=== PATIENT | female | born 1945 | race Caucasian/White ===

== ENCOUNTER 2023-06-03 10:44 | Outpatient (AMB) | payer MEDICARE, SELFPAY ==
--- NOTE | 2023-06-03 10:47 | A.OFFVIS_ITS ---
Intake Vital Signs 06/03/23 10:53 Height 5 ft 0.5 in Weight 210 lb BMI 40.3 BP 116/67 Blood Pressure Location Lt brachial Position Sitting Respiration 18 Pulse 74 Pulse Source Pulse Oximeter Pulse Oximetry (%) 94 Oxygen Delivery Method Room Air Intake Visit Reasons: Back & Neck Pain/confirmed Allergies [id number] Reductase Inhibitor Allergy (Unknown, Verified 06/03/23 10:38) Unknown codeine phosphate Allergy (Unknown, Uncoded 06/03/23 10:38) Gastrointestinal Upset dyazide Allergy (Unknown, Uncoded 06/03/23 10:38) Rash HPI Back & Neck Pain/confirmed HPI Details Patient is a pleasant 78 years old female presents today for initial evaluation for chronic neck and low back pain. Denies any recent trauma, injury or falls. Patient reports major thoracic surgery, plication with chest tubes in January 2023 for hemidiaphragm paralysis. She is on O2 at 2L via nasal cannula with activity. Patient reports severe back spasms after thoracic surgery. Her neck and back pain are axial without any radicular symptoms. Back pain extends into her lateral hip and sacral regions bilaterally. Neck pain is worse with extension and right sided rotation and bending. Patient reports she has been ma naging her symptoms with NSAIDs, stretching exercises, Biofreeze, gabapentin and resting in her recliner but continues to have significant pain, especially in the morning or with prolonged standing for example when she prepares her meals. Pain affects her daily activities and functioning, mobility, mood, social interactions and quality of life. She rates her pain at 2/10 at this time, and 7-10/10 upon awakening in the morning or daily activities. Patient reports being seen by Dr. Carmona at [facility] many years ago and was offered injections for right sided sciatica which she declined and symptoms self- resolved. She reports meloxicam was very beneficial in the past. Patient has recently stopped taking Ibuprofen due to positive cologuard test and has upcoming GI evaluation. Patient continues Pulmonary rehabilitation. Patient reports she consumes whisky 1-2 glasses every day for pain and stress. She avoids driving while consuming alcohol and avoids combining alcohol with her medications, especially gabapentin and lorazepam. Patient is aware of addictive properties for alcohol consumption and lorazepam. Location mid and lower back and neck pain Duration Chronic pain for many years, intermittent, worse in the morning/during day Characteristics of symptom or complaint Aching, stabbing, sharp, tiring, numbness (occasionally left arm) Aggravating or associated factors Standing, movements, bending, stress, cold weather Relieving factors Ibuprofen, Biofreeze, Recliner, gabapentin, heat therapy Treatment Weekly massages, home PT, chiropractic, acupunture, [facility] Medical History (Updated 06/03/23 @ 13:30 by ASHLEY Mccloud) Anxiety Neck pain Back pain Benzodiazepine dependence Morbid obesity HTN (hypertension) Diastolic CHF Hemidiaphragm paralysis Hypoxic respiratory failure Major depression Asthma COPD (chronic obstructive pulmonary disease) Surgical History (Updated 06/03/23 @ 12:55 by ASHLEY Mccloud) History of thoracic surgery Social History (Updated 06/03/23 @ 12:59 by ASHLEY Mccloud) Household Members: None Housing: House Alcohol intake: current Alcohol intake frequency: 0-2 drinks per day Alcohol type: hard liquor Comment: Whisky Patient Tobacco Use Status: Former Tobacco user Review of Systems Const All systems reviewed & are unremarkable except as noted in HPI and below Physical Exam General: Appears afebrile. Alert and oriented. Mood and affect appropriate. Follows and participates in conversation appropriately. Respiratory effort is unlabored. No cough. O2@2L with activity. Able to transition from sit to stand unassisted. Antalgic gait. Ambulates with bilaterally normal heel strike and toe off. Neck Neck: Yes no lymphadenopathy, Yes supple, No anterior neck swelling and Yes no JVD Back/Spine/Pelvis Other: Limited thoracolumbar ROM due to pain. Antalgic gait, with slight limping. Demonstrates 5/5 strength of quadriceps bilaterally as well as flexion/dorsiflexion of bilateral feet against resistance. 2+ pedal pulses bilaterally. Seated straight leg rise with dorsiflexion negative bilaterally. Diminished patellar and achilles reflexes bilaterally. Facet loading test positive bilaterally, left>right. Maida sign, Sharath?s, Pelvic compression and Stinchfield tests are positive bilaterally. No groin pain with I/E hip rotations. Mild TTP bilateral GTB areas. Valsalva maneuver negative. Cervical Spine: cervical muscular tenderness, pain with cervical ROM, No cervical spasm and No Cervical spine tenderness Thoracic/Lumbar Spine: thoracic and lumbar spine normal to inspection, Thoracic/lumbar spine scar(s) (s/p plication 02/18/23, well healed incisions), Lasegue's sign negative, straight leg raise negative bilaterally, pain with thoraco-lumbar ROM, paraspinal muscle tenderness, thoraco-lumbar ROM limited, Thoracic/lumbar scoliosis, thoracic spinal tenderness at T11 and at T12 and lumbar spinal tenderness (L4-S1) Pelvis: buttock tenderness Sacroiliac joints: bilaterally tender to palpation Results Reviewed Results Reviewed: MR LUMBAR SPINE WITHOUT CONTRAST 01/07/2017 at [facility] HISTORY: Outside scan from [facility] dated 10/17/2014. COMPARISON: None. TECHNIQUE: Sagittal and axial T1-weighted and fast spin echo T2-weighted images were obtained. FINDINGS: This report was delayed pending arrival of outside images for comparison. L1-2: The disc is of normal height and signal intensity without significant disc bulge or herniation. L2-3: The disc is of normal height and signal intensity without significant disc bulge or herniation. L3-4: The disc is of diminished height and signal intensity. There is mild right lateral disc protrusion and degenerative facet arthropathy causing no significant impression upon the dural sac or nerve roots unchanged. L4-5: There is mild retrolisthesis. The disc is of diminished height and signal intensity. There is mild broad-based disc herniation and spur formation and degenerative facet arthropathy causing slight flattening of the dural sac and very mild encroachment upon the left neural foramen unchanged. L5-S1: There is slight retrolisthesis. The disc is of diminished height and signal intensity. There is an annular tear and degenerative facet arthropathy causing very slight encroachment upon the left neural foramen unchanged. There is moderate lumbar scoliosis convex left. There are endplate degenerative changes most pronounced at L4-5 and T12-L1. There is a benign vertebral hemangioma at L4. Conus terminates at L1 and appears normal. There is no paraspinous mass. IMPRESSION: Moderate lumbar scoliosis convex left with minor disc herniations and degenerative changes as described causing no significant impression upon the dural sac or nerve roots unchanged. Assessment & Plan Assessment & Plan (1) Low back pain: Code(s): M54.50 - Low back pain, unspecified (2) Degeneration of thoracolumbar intervertebral disc: Code(s): M51.35 - Other intervertebral disc degeneration, thoracolumbar region (3) Sacroiliac joint pain: Code(s): M53.3 - Sacrococcygeal disorders, not elsewhere classified (4) Lumbosacral spondylosis: Code(s): M47.817 - Spondylosis without myelopathy or radiculopathy, lumbosacral region (5) Lumbar scoliosis: Code(s): M41.9 - Scoliosis, unspecified Plan Lumbar and thoracic spine imaging to assess degree of degenerative changes, any subluxation, listhesis, compression fractures or pars defects. Discussed interventional treatments for neck and back pain, including diagnostic injections for potential Sprint PNS trial or RFA procedures, as well as therapeutic injections. Informational pamphlets provided to patient. Continue daily stretching exercises, Tylenol, heat therapy, adequate hydration, and weight optimization. Reviewed addictive properties and negative effects of alcohol use, including impaired balance, and risks associated with taking [employer] depressants with alcohol. Encouraged patient to stop alcohol consumption. All questions were answered and the patient is in agreement of plan. Follow-up for xray results and sooner as needed. Orders: Orders XR lumbar spine 4V min Today M51.35 - Other intervertebral disc degeneration, thoracolumbar region, M54.50 - Low back pain, unspecified XR thoracic spine 3V Today M47.817 - Spondylosis without myelopathy or radiculopathy, lumbosacral region, M51.35 - Other intervertebral disc degeneration, thoracolumbar region, M53.3 - Sacrococcygeal disorders, not elsewhere classified, M54.50 - Low back pain, unspecified Coding Level of Care Code New Pt Level 4 (75404) Diagnoses Low back pain M54.50 Degeneration of thoracolumbar intervertebral disc M51.35 Sacroiliac joint pain M53.3 Lumbosacral spondylosis M47.817 Lumbar scoliosis M41.9
[2023-06-03 10:53] VITALS: BP 116/67; PULSE 74; RESP 18; O2SAT 94; BMI 40.3
== END 2023-06-03 11:45 | disposition home or self-care (01) ==
PROVIDERS: PCP Internal Medicine; Visit Provider Nurse Practitioner Family
DX: M54.50 Low back pain, unspecified (principal); M51.35 Other intervertebral disc degeneration, thoracolumbar region; M53.3 Sacrococcygeal disorders, not elsewhere classified; M47.817 Spondylosis without myelopathy or radiculopathy, lumbosacral region; M41.9 Scoliosis, unspecified
CPT/HCPCS: 99204

== ENCOUNTER → 2023-06-03 10:44 | Outpatient (BNVA) | payer MEDICARE, SELFPAY | PROVIDERS: PCP Internal Medicine; Visit Provider Nurse Practitioner Family | DX: M54.50 Low back pain, unspecified (principal); M51.35 Other intervertebral disc degeneration, thoracolumbar region; M53.3 Sacrococcygeal disorders, not elsewhere classified; M47.817 Spondylosis without myelopathy or radiculopathy, lumbosacral region; M41.9 Scoliosis, unspecified | CPT/HCPCS: 99202 ==

== ENCOUNTER 2023-11-16 13:43 | Outpatient (AMB) | payer MEDICARE, SELFPAY ==
[2023-11-16 13:55] VITALS: BP 110/68; PULSE 75; O2SAT 93; BMI 43.3
--- NOTE | 2023-11-16 13:55 | A.OFFVIS_ITS ---
Vital Signs 11/16/23 13:55 Height 5 ft 0.5 in Weight 225 lb 4 oz BMI 43.3 BP 110/68 Blood Pressure Location Lt brachial Position Sitting Pulse 75 Pulse Source Pulse Oximeter Pulse Oximetry (%) 93 Oxygen Delivery Method Room Air Intake Visit Reasons: copd / asthma Allergies [id number] Reductase Inhibitor Allergy (Unknown, Verified 11/16/23 13:58) Unknown codeine phosphate Allergy (Unknown, Uncoded 11/16/23 13:58) Gastrointestinal Upset dyazide Allergy (Unknown, Uncoded 11/16/23 13:58) Rash HPI HPI copd / asthma: Details: Kathe is a pleasant 78 year old female, former smoker, with 30 pack year history, quit 40 years ago with underlying COPD, DAPHNE on CPAP, diastolic dysfunction on lasix 20 mg and HTN. She was referred by PCP for pulmonary evaluation. She reports worsening respiratory symptoms over the last few years. Previously quite active however activity level declined over the last three years with 30-40 lbs weight gain. She notes 3.5 years ago she was admitted for reported respiratory failure with hypoxia. She believes it was due to COPD exacerbation, however notes unavailable. PFT 2020 revealed severe obstructive and restrictive defect, DLCO 51%. She also underwent hiatal hernia repair 2 years ago at [facility] as this what thought to be a contributing factor of dyspnea. Then sent to thoracic at [facility] for plication surgery for paralysis of right hemidiaphragm in January 2023. Unfortunately she reports complications requiring an 11 day stay and was discharged on 9L of continuous supplemental oxygen. Report unavailable. As of March 2023, her oxygen requirements decreased and was instructed to use 2 L with exertion which she receives from [employer]. She is not wearing supplemental oxygen today and reports rarely using. She attended pulmonary rehab x 10 sessions. Despite both surgeries, dyspnea has persisted. She monitors her oxygen saturation at home and reports >92% on room air, however only at rest. She reports dyspnea on exertion with occasional dry cough, sometimes productive upon awakening with clear sputum. Denies wheezing and chest tightness. She denies any occupational exposures. She denies any pertinent family history. She reports DAPHNE, unknown severity, using CPAP consistently and is under the care of [facility] sleep medicine. [employer] is her DME. [facility] Medical History (Updated 11/17/23 @ 20:06 by Jayla Osman NP) Anxiety Neck pain Back pain Benzodiazepine dependence Morbid obesity HTN (hypertension) Diastolic CHF Hemidiaphragm paralysis Hypoxic respiratory failure Major depression Asthma COPD (chronic obstructive pulmonary disease) Surgical History (Updated 06/03/23 @ 12:55 by SAHLEY Mccloud) History of thoracic surgery Social History Household Members: None Housing: House Alcohol intake: current Alcohol intake frequency: 0-2 drinks per day Alcohol type: hard liquor Comment: Whisky Patient Tobacco Use Status: Former Tobacco user Review of Systems Const Denies chills, Denies excessive sweating, Denies fever(s), Denies headache(s) and Denies night sweats Eyes Denies dry eyes, Denies irritation and Denies itchy eyes ENT Reports Normal hearing present, Denies headache(s), Denies nasal congestion, Denies nasal discharge, Denies post nasal drip and Denies sore throat Card Denies chest pain, Denies chest pain at rest, Denies chest pain with activity, Denies claudication, Denies leg edema, Denies orthopnea and Denies paroxysmal nocturnal dyspnea Resp Denies chest congestion, Denies excessive phlegm production, Denies pain on inspiration, Denies pain with cough, Denies stridor and Denies wheezing Musc Denies myalgias Neuro Reports Normal hearing present and Denies headache(s) Endo Denies excessive sweating Baldemar/Lymph Denies lymphadenopathy Aller/Immun Denies itchy eyes, Denies seasonal rhinorrhea and Denies wheezing Physical Exam Vital Signs: Last Vital Signs Pulse 75 11/16/23 13:55 BP 110/68 11/16/23 13:55 Pulse Ox 93 11/16/23 13:55 Oxygen Delivery Method Room Air 11/16/23 13:55 BMI result Body Mass Index 43.3 Const General: cooperative, healthy appearing, comfortable, no acute distress, well developed and alert Nutritional Appearance: obese Orientation/consciousness: patient oriented x3 Limitations: no limitations HEENT Head: Yes normal to inspection, Yes normocephalic and Yes atraumatic Ears: hearing grossly normal bilaterally and external ears normal Eyes General: appearance normal, both eyes and all related structures Eyelids: Yes eyelids normal Sclerae: sclerae normal EOM: EOMs intact bilaterally Neck Neck: Yes normal visual inspection and Yes no lymphadenopathy Lymphatic: no lymphadenopathy noted Chest Chest palpation & inspection: normal inspection of the chest Resp Effort & Inspection: normal respiratory effort, able to speak in complete sentences, no audible wheezes, no cough, no stridor, not tachypneic, no tripod positioning and no use of accessory muscles Auscultation: clear to auscultation bilaterally Cardio Jugular venous distension: no JVD Rate: regular rate Rhythm: regular rhythm Skin Other: warm, dry General skin exam: no rashes or lesions noted Neuro General: patient oriented x3 Cranial nerves: Yes Normal hearing present Cognition (Neuro): normal cognition Gait exam (Neuro): Normal gait present Extrem General: Yes normal to inspection, Yes capillary refill normal, Yes no clubbing, cyanosis or edema and Yes no pedal edema Psych Appearance: grossly normal and well kempt Speech and movement: Normal speech and movement present and Clear speech present Affect: normal affect Attitude: cooperative Thought process: Normal thought process present Thought content: Normal thought content present Insight: Good insight present (Psych) Judgement: Good judgement present (Psych) Office Procedures 6 Minute Walk Time:: 15:00 SPO2 % at rest: 95 Pulse at rest: 71 SPO2 % during excercise: 87 Pulse during excercise: 85 SPO2 % after excercise: 92 Pulse after excercise: 88 Distance in yards walked: 100 Brian Score: 7 Performance Observations:: Patient walked on level ground unassisted at a slow pace. After approx 25 yards O2 saturation dropped to 87% with pulse of 85. O2 applied at 1L via nasal cannula without much help..increased to 2L and rested O2 saturation recovered to 93% with pulse of 88. Continued walk and maintained saturation of 92% and pulse of 88%. Patient was unable to complete the full six minute walk do to significant arthritic pain in her back. Patient would benefit from the use of supplemental O2. 20582 - 6 Minute Walk Assessment & Plan Assessment & Plan (1) COPD (chronic obstructive pulmonary disease): Code(s): J44.9 - Chronic obstructive pulmonary disease, unspecified Category: Medical (2) History of acute respiratory failure: Code(s): Z87.09 - Personal history of other diseases of the respiratory system Category: Medical (3) Personal history of tobacco use: Code(s): Z87.891 - Personal history of nicotine dependence Category: Social Hx Plan Kathe's symptoms are likely multifactorial with contribution from pulmonary, cardiac and deconditioning/obesity etiologies, as well as h/o prior surgeries. W ill attempt to obtain prior records from [facility]. She reports imaging performed after plication surgery, will attempt to request as well. Discussed obtaining new PFT as the last was performed prior to plication surgery, but she would like to hold off at this time. She was recently prescribed Breo as symbicort was no longer covered by insurance, but she has not trialed yet. She will start when she completes symbicort prescription. We did discuss Trelegy if Breo suboptimal. Patient was interested in Inogen so 6MWT was performed. 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 Discussed importance of using supplemental oxygen as well as adverse effects of hypoxia. She was agreeable to be compliant. Will reach out to [facility] to discuss. All questions were answered and patient is in agreement of plan. Will follow up in 4-6 or sooner if needed. Orders: Orders AMB 6 minute walk 11/16/23 J44.9 - Chronic obstructive pulmonary disease, unspecified Coding Level of Care Code New Pt Level 4 (14899) Diagnoses COPD (chronic obstructive pulmonary disease) J44.9 History of acute respiratory failure Z87.09 Personal history of tobacco use Z87.891 CPT Codes Coding ([id number])
[2023-11-16 15:37] VITALS: PULSE 71; O2SAT 95
== END 2023-11-16 15:38 | disposition home or self-care (01) ==
PROVIDERS: PCP Internal Medicine; Referring Provider Internal Medicine; Visit Provider Nurse Practitioner Family
DX: J44.9 Chronic obstructive pulmonary disease, unspecified (principal)
CPT/HCPCS: 94618; 99204; 99214

== ENCOUNTER → 2023-11-16 13:43 | Outpatient (BNVA) | payer MEDICARE, SELFPAY | PROVIDERS: PCP Internal Medicine; Referring Provider Internal Medicine; Visit Provider Nurse Practitioner Family | DX: J44.9 Chronic obstructive pulmonary disease, unspecified (principal); Z87.09 Personal history of other diseases of the respiratory system; Z87.891 Personal history of nicotine dependence | CPT/HCPCS: 94618; 99202 ==

== ENCOUNTER 2023-12-21 10:32 | Outpatient (AMB) | payer MEDICARE, SELFPAY ==
--- NOTE | 2023-12-21 10:34 | MHC.OFFVIS ---
Vital Signs 12/21/23 10:35 Height 5 ft 0.05 in Weight 224 lb 8 oz BMI 43.8 BP 114/68 Blood Pressure Location Rt brachial Position Sitting Pulse 69 Pulse Source Pulse Oximeter Pulse Oximetry (%) 94 Oxygen Delivery Method Room Air Intake Visit Reasons: copd / asthma Allergies [id number] Reductase Inhibitor Allergy (Unknown, Verified 12/21/23 10:38) Unknown codeine phosphate Allergy (Unknown, Uncoded 12/21/23 10:38) Gastrointestinal Upset dyazide Allergy (Unknown, Uncoded 12/21/23 10:38) Rash HPI HPI copd / asthma: Details: Kathe is a pleasant 78 year old female, former smoker, with 30 pack year history, quit 40 years ago with underlying COPD, DAPHNE on CPAP, diastolic dysfunction on lasix 20 mg and HTN. Previously admitted for acute respiratory failure with hypoxia secondary to COPD exacerbation. PFT 2020 revealed severe obstructive and restrictive defect, DLCO 51%. She also underwent hiatal hernia repair 2 years ago at [facility] as this what thought to be a contributing factor of dyspnea. Then sent to thoracic at [facility] for plication surgery for paralysis of right hemidiaphragm in January 2023 with complications related to hypoxia and discharged on 9L of continuous supplemental oxygen. As of March 2023, her oxygen requirements decreased and was instructed to use 2 L with exertion which she receives from [facility]. She continues to report productive cough in the morning with clear sputum, then dry cough throughout the day with dyspnea on exertion. She denies wheezing. At the last visit she was prescribed Breo but only sarting using one week ago, unclear if effective. Of note, patient is prescribed lasix 20 mg by PCP and had previously been instructed to increase to 40 mg qd if BLE edema. Today patient with significant pitting edema of BLE. REPLACED BY [facility] Medical History (Updated 11/17/23 @ 20:06 by Jayla Osman NP) Anxiety Neck pain Back pain Benzodiazepine dependence Morbid obesity HTN (hypertension) Diastolic CHF Hemidiaphragm paralysis Hypoxic respiratory failure Major depression Asthma COPD (chronic obstructive pulmonary disease) Surgical History (Updated 06/03/23 @ 12:55 by ASHLEY Mccloud) History of thoracic surgery Social History Household Members: None Housing: House Alcohol intake: current Alcohol intake frequency: 0-2 drinks per day Alcohol type: hard liquor Comment: Whisky Patient Tobacco Use Status: Former Tobacco user Review of Systems Const Denies chills, Denies excessive sweating, Denies fever(s), Denies headache(s) and Denies night sweats Eyes Denies dry eyes, Denies irritation and Denies itchy eyes ENT Reports Normal hearing present, Denies headache(s), Denies nasal congestion, Denies nasal discharge, Denies post nasal drip and Denies sore throat Card Denies chest pain, Denies chest pain at rest, Denies chest pain with activity, Denies claudication, Denies leg edema, Denies orthopnea and Denies paroxysmal nocturnal dyspnea Resp Denies chest congestion, Denies excessive phlegm production, Denies pain on inspiration, Denies pain with cough, Denies stridor and Denies wheezing Musc Denies myalgias Neuro Reports Normal hearing present and Denies headache(s) Endo Denies excessive sweating Baldemar/Lymph Denies lymphadenopathy Aller/Immun Denies itchy eyes, Denies seasonal rhinorrhea and Denies wheezing Physical Exam Vital Signs: Last Vital Signs Pulse 69 12/21/23 10:35 BP 114/68 12/21/23 10:35 Pulse Ox 94 12/21/23 10:35 Oxygen Delivery Method Room Air 12/21/23 10:35 BMI result Body Mass Index 43.8 Const General: cooperative, healthy appearing, comfortable, no acute distress, well developed and alert Nutritional Appearance: obese Orientation/consciousness: patient oriented x3 Limitations: no limitations HEENT Head: Yes normal to inspection, Yes normocephalic and Yes atraumatic Ears: hearing grossly normal bilaterally and external ears normal Eyes General: appearance normal, both eyes and all related structures Eyelids: Yes eyelids normal Sclerae: sclerae normal EOM: EOMs intact bilaterally Neck Neck: Yes normal visual inspection and Yes no lymphadenopathy Lymphatic: no lymphadenopathy noted Chest Chest palpation & inspection: normal inspection of the chest Resp Effort & Inspection: normal respiratory effort, able to speak in complete sentences, no audible wheezes, no cough, no stridor, not tachypneic, no tripod positioning and no use of accessory muscles Auscultation: clear to auscultation bilaterally Cardio Jugular venous distension: no JVD Rate: regular rate Rhythm: regular rhythm Skin Other: warm, dry General skin exam: no rashes or lesions noted Neuro General: patient oriented x3 Cranial nerves: Yes Normal hearing present Cognition (Neuro): normal cognition Gait exam (Neuro): Normal gait present Extrem Other: 3+ pitting edema of BLE Psych Appearance: grossly normal and well kempt Speech and movement: Normal speech and movement present and Clear speech present Affect: normal affect Attitude: cooperative Thought process: Normal thought process present Thought content: Normal thought content present Insight: Good insight present (Psych) Judgement: Good judgement present (Psych) Assessment & Plan Assessment & Plan (1) COPD (chronic obstructive pulmonary disease): Code(s): J44.9 - Chronic obstructive pulmonary disease, unspecified Category: Medical (2) History of acute respiratory failure: Code(s): Z87.09 - Personal history of other diseases of the respiratory system Category: Medical (3) Personal history of tobacco use: Code(s): Z87.891 - Personal history of nicotine dependence Category: Social Hx Plan Kathe's symptoms are likely multifactorial with contribution from pulmonary, cardiac and deconditioning/obesity etiologies, as well as h/o prior surgeries. Again discussed obtaining new PFT as the last was performed prior to plication surgery as well as repeat chest CT but she would like to hold off at this time. She continues to report dyspnea on exertion and has only used Breo x 1 week, advised to continue. Patient also with significant BLE edema, advised to increase to 40 mg lasix for the next few days to see if she has symptomatic improvement in dyspnea/edema. If this improves would consider lasix 40 mg QOD as well as cardiology referral. All questions were answered and patient is in agreement of plan. Will follow up in 6-8 weeks or sooner if needed. Coding Level of Care Code Est Pt Level 4 (07439) Diagnoses COPD (chronic obstructive pulmonary disease) J44.9 History of acute respiratory failure Z87.09 Personal history of tobacco use Z87.891
[2023-12-21 10:35] VITALS: BP 114/68; PULSE 69; O2SAT 94; BMI 43.8
== END 2023-12-21 11:17 | disposition home or self-care (01) ==
PROVIDERS: PCP Internal Medicine; Visit Provider Nurse Practitioner Family
DX: J44.9 Chronic obstructive pulmonary disease, unspecified (principal); Z87.09 Personal history of other diseases of the respiratory system; Z87.891 Personal history of nicotine dependence
CPT/HCPCS: 99214

== ENCOUNTER → 2023-12-21 10:32 | Outpatient (BNVA) | payer MEDICARE, SELFPAY | PROVIDERS: PCP Internal Medicine; Visit Provider Nurse Practitioner Family | DX: J44.9 Chronic obstructive pulmonary disease, unspecified (principal); Z87.09 Personal history of other diseases of the respiratory system; Z87.891 Personal history of nicotine dependence | CPT/HCPCS: 99212 ==

== ENCOUNTER 2024-02-18 10:41 | Outpatient (AMB) | payer MEDICARE, SELFPAY ==
--- NOTE | 2024-02-18 10:52 | MHC.OFFVIS ---
Vital Signs 02/18/24 10:53 Height 5 ft 0.5 in Weight 224 lb 6 oz BMI 43.1 BP 114/70 Blood Pressure Location Rt brachial Position Sitting Pulse 65 Pulse Source Pulse Oximeter Pulse Oximetry (%) 93 Oxygen Delivery Method Room Air Intake Visit Reasons: copd/asthma Allergies [id number] Reductase Inhibitor Allergy (Unknown, Verified 02/18/24 10:56) Unknown codeine phosphate Allergy (Unknown, Uncoded 02/18/24 10:56) Gastrointestinal Upset dyazide Allergy (Unknown, Uncoded 02/18/24 10:56) Rash HPI HPI copd/asthma: Details: Kathe is a pleasant 79 year old female, former smoker, with 30 pack year history, quit 40 years ago with underlying COPD, DAPHNE on CPAP, diastolic dysfunction on lasix 20 mg and HTN. Previously admitted for acute respiratory failure with hypoxia secondary to COPD exacerbation. PFT 2020 revealed severe obstructive and restrictive defect, DLCO 51%. She also underwent hiatal hernia repair 2 years ago at [facility] as this what thought to be a contributing factor of dyspnea. Then sent to thoracic at [facility] for plication surgery for paralysis of right hemidiaphragm in January 2023 with complications related to hypoxia and discharged on 9L of continuous supplemental oxygen. As of March 2023, her oxygen requirements decreased and was instructed to use 2 L with exertion which she receives from [facility]. She continues to report productive cough in the morning with clear sputum, then dry cough throughout the day with dyspnea on exertion. She denies wheezing. She was prescribed Breo however reports minimal effect and has not used albuterol MDI. She expressed frustration as she can not perform daily activities without dyspnea. [facility] Medical History (Updated 12/29/23 @ 11:58 by Jayla Osman NP) Anxiety Neck pain Back pain Benzodiazepine dependence Morbid obesity HTN (hypertension) Diastolic CHF Hemidiaphragm paralysis Hypoxic respiratory failure Major depression Asthma COPD (chronic obstructive pulmonary disease) Surgical History (Updated 06/03/23 @ 12:55 by ASHLEY cMcloud) History of thoracic surgery Social History Household Members: None Housing: House Alcohol intake: current Alcohol intake frequency: 0-2 drinks per day Alcohol type: hard liquor Comment: Whisky Patient Tobacco Use Status: Former Tobacco user Review of Systems Const Denies chills, Denies excessive sweating, Denies fever(s), Denies headache(s) and Denies night sweats Eyes Denies dry eyes, Denies irritation and Denies itchy eyes ENT Reports Normal hearing present, Denies headache(s), Denies nasal congestion, Denies nasal discharge, Denies post nasal drip and Denies sore throat Card Denies chest pain, Denies chest pain at rest, Denies chest pain with activity, Denies claudication, Denies orthopnea and Denies paroxysmal nocturnal dyspnea Resp Denies chest congestion, Denies excessive phlegm production, Denies pain on inspiration, Denies pain with cough, Denies stridor and Denies wheezing Musc Denies myalgias Neuro Reports Normal hearing present and Denies headache(s) Endo Denies excessive sweating Baldemar/Lymph Denies lymphadenopathy Aller/Immun Denies itchy eyes, Denies seasonal rhinorrhea and Denies wheezing Physical Exam Vital Signs: Last Vital Signs Pulse 65 02/18/24 10:53 BP 114/70 02/18/24 10:53 Pulse Ox 93 02/18/24 10:53 Oxygen Delivery Method Room Air 02/18/24 10:53 BMI result Body Mass Index 43.1 Const General: cooperative, healthy appearing, comfortable, no acute distress, well developed and alert Nutritional Appearance: obese Orientation/consciousness: patient oriented x3 Limitations: no limitations HEENT Head: Yes normal to inspection, Yes normocephalic and Yes atraumatic Ears: hearing grossly normal bilaterally and external ears normal Eyes General: appearance normal, both eyes and all related structures Eyelids: Yes eyelids normal Sclerae: sclerae normal EOM: EOMs intact bilaterally Neck Neck: Yes normal visual inspection and Yes no lymphadenopathy Lymphatic: no lymphadenopathy noted Chest Chest palpation & inspection: normal inspection of the chest Resp Effort & Inspection: normal respiratory effort, able to speak in complete sentences, no audible wheezes, no cough, no stridor, not tachypneic, no tripod positioning and no use of accessory muscles Auscultation: clear to auscultation bilaterally Cardio Jugular venous distension: no JVD Rate: regular rate Rhythm: regular rhythm Skin Other: warm, dry General skin exam: no rashes or lesions noted Neuro General: patient oriented x3 Cranial nerves: Yes Normal hearing present Cognition (Neuro): normal cognition Gait exam (Neuro): Normal gait present Extrem Other: 3+ pitting edema of BLE Psych Appearance: grossly normal and well kempt Speech and movement: Normal speech and movement present and Clear speech present Affect: normal affect Attitude: cooperative Thought process: Normal thought process present Thought content: Normal thought content present Insight: Good insight present (Psych) Judgement: Good judgement present (Psych) Assessment & Plan Assessment & Plan (1) COPD (chronic obstructive pulmonary disease): Code(s): J44.9 - Chronic obstructive pulmonary disease, unspecified Category: Medical (2) History of acute respiratory failure: Code(s): Z87.09 - Personal history of other diseases of the respiratory system Category: Medical (3) Personal history of tobacco use: Code(s): Z87.891 - Personal history of nicotine dependence Category: Social Hx Plan Discussed increasing Breo as patient is on the lowest dose however she would like to trial albuterol MDI PRN. We discussed pulmonary rehab however she deferred and would like to attempt exercises at home. Previously we discussed repeat chest CT which she declined however she is agreeable. Will enter order to assess for any underlying parenchymal conditions contributing to symptoms. At the last visit, a cardiology referral was entered however she has not heard from them, will look into this. All questions were answered and patient is in agreement of plan. Will follow up in 6-8 weeks or sooner if needed. Orders: Orders CT chest wo IV con Today J44.9 - Chronic obstructive pulmonary disease, unspecified Coding Level of Care Code Est Pt Level 4 (19606) Diagnoses COPD (chronic obstructive pulmonary disease) J44.9 History of acute respiratory failure Z87.09 Personal history of tobacco use Z87.891
[2024-02-18 10:53] VITALS: BP 114/70; PULSE 65; O2SAT 93; BMI 43.1
== END 2024-02-18 11:25 | disposition home or self-care (01) ==
PROVIDERS: PCP Internal Medicine; Visit Provider Nurse Practitioner Family
DX: J44.9 Chronic obstructive pulmonary disease, unspecified (principal); Z87.09 Personal history of other diseases of the respiratory system; Z87.891 Personal history of nicotine dependence
CPT/HCPCS: 99214

== ENCOUNTER → 2024-02-18 10:41 | Outpatient (BNVA) | payer MEDICARE, SELFPAY | PROVIDERS: PCP Internal Medicine; Visit Provider Nurse Practitioner Family | DX: J44.9 Chronic obstructive pulmonary disease, unspecified (principal); Z87.09 Personal history of other diseases of the respiratory system; Z87.891 Personal history of nicotine dependence | CPT/HCPCS: 99212 ==

== ENCOUNTER 2024-10-04 08:56 | Outpatient (AMB) | payer MEDICARE, SELFPAY ==
--- NOTE | 2024-10-04 08:57 | MHC.OFFVIS ---
Vital Signs 10/04/24 08:58 Height 5 ft 0.5 in Weight 215 lb 8 oz BMI 41.4 BP 140/78 H Blood Pressure Location Lt brachial Position Sitting Pulse 103 H Pulse Source Pulse Oximeter Pulse Oximetry (%) 92 Oxygen Delivery Method Nasal Cannula Oxygen Flow Rate 2 Intake Visit Reasons: COPD/Asthma Allergies [id number] Reductase Inhibitor Allergy (Unknown, Verified 10/04/24 09:03) Unknown codeine phosphate Allergy (Unknown, Uncoded 10/04/24 09:03) Gastrointestinal Upset dyazide Allergy (Unknown, Uncoded 10/04/24 09:03) Rash HPI HPI COPD/Asthma: Details: Kathe is a pleasant 79 year old female, former 30 pack year smoker, quit 40 years ago with underlying severe COPD, h/o acute respiratory failure with hypoxia on 2L supplemental oxygen with exertion, mild DAPHNE on CPAP (Sleep Medicine [facility]), diastolic dysfunction on lasix 20 mg, HTN and s/p hiatal hernia repair. She underwent hiatal hernia repair 2 years ago at [facility] as this what thought to be a contributing factor of dyspnea. Then sent to thoracic at [facility] for plication surgery for paralysis of right hemidiaphragm in January 2023 with complications related to hypoxia and discharged on 9L of continuous supplemental oxygen. As of March 2023, her oxygen requirements decreased and was instructed to use 2 L with exertion which she receives from [place]. She does admit to using supplemental oxygen only when leaving the house, otherwise does not use. She has not informed Sleep Medicine about hypoxia onset 2 years ago, unsure if pressures are optimal and will notify them after this visit. DME is [facility]. Since the last visit, she was admitted to [facility] in June 2024 for extensive RLE DVT and extensive left lung pulmonary embolism, small PE of RLL/RUL, now on Eliquis. Denies prior injury, surgery, cancer or medications that would put patient at higher risk for DVT/PE. She reports prior provoked DVT 25+ years ago after knee injury in addition to estrogen based medication, completed coumadin at that time. Echo revealed significant right heart strain, with repeat echo scheduled for next month, under the care of cardiology through [facility]. She also has an upcoming appointment with hematology for full hypercoagulability workup, previously lupus anticoagulant positive and will have repeat testing. She is also under the care of vascular. She has been suboptimally controlled on Breo, continues to report dyspnea on exertion and productive cough with whitish sputum. Denies wheezing or chest tightness. COUNTS INCLUDE 234 BEDS AT THE [facility] Medical History (Updated 10/04/24 @ 12:19 by Jayla Osman NP) Anxiety Neck pain Back pain Benzodiazepine dependence Morbid obesity HTN (hypertension) Diastolic CHF Hemidiaphragm paralysis Hypoxic respiratory failure Major depression Asthma COPD (chronic obstructive pulmonary disease) Surgical History (Updated 06/03/23 @ 12:55 by ASHLEY Mccloud) History of thoracic surgery Social History Household Members: None Housing: House Alcohol intake: current Alcohol intake frequency: 0-2 drinks per day Alcohol type: hard liquor Comment: Whisky Patient Tobacco Use Status: Former Tobacco user Review of Systems Const Denies chills, Denies excessive sweating, Denies fever(s), Denies headache(s) and Denies night sweats Eyes Denies dry eyes, Denies irritation and Denies itchy eyes ENT Reports Normal hearing present, Denies headache(s), Denies nasal congestion, Denies nasal discharge, Denies post nasal drip and Denies sore throat Card Denies chest pain, Denies chest pain at rest, Denies chest pain with activity, Denies claudication, Denies orthopnea and Denies paroxysmal nocturnal dyspnea Resp Denies chest congestion, Denies excessive phlegm production, Denies pain on inspiration, Denies pain with cough, Denies stridor and Denies wheezing Musc Denies myalgias Neuro Reports Normal hearing present and Denies headache(s) Endo Denies excessive sweating Baldemar/Lymph Denies lymphadenopathy Aller/Immun Denies itchy eyes, Denies seasonal rhinorrhea and Denies wheezing Physical Exam Vital Signs: Last Vital Signs Pulse 103 H 10/04/24 08:58 BP 140/78 H 10/04/24 08:58 Pulse Ox 92 10/04/24 08:58 Oxygen Delivery Method Nasal Cannula 10/04/24 08:58 Oxygen Flow Rate 2 10/04/24 08:58 BMI result Body Mass Index 41.4 Const General: cooperative, healthy appearing, comfortable, no acute distress, well developed and alert Nutritional Appearance: obese Orientation/consciousness: patient oriented x3 Limitations: no limitations HEENT Head: Yes normal to inspection, Yes normocephalic and Yes atraumatic Ears: hearing grossly normal bilaterally and external ears normal Eyes General: appearance normal, both eyes and all related structures Eyelids: Yes eyelids normal Sclerae: sclerae normal EOM: EOMs intact bilaterally Neck Neck: Yes normal visual inspection and Yes no lymphadenopathy Lymphatic: no lymphadenopathy noted Chest Chest palpation & inspection: normal inspection of the chest Resp Effort & Inspection: normal respiratory effort, able to speak in complete sentences, no audible wheezes, no cough, no stridor, not tachypneic, no tripod positioning and no use of accessory muscles Auscultation: clear to auscultation bilaterally Cardio Jugular venous distension: no JVD Rate: regular rate Rhythm: regular rhythm Skin Other: warm, dry General skin exam: no rashes or lesions noted Neuro General: patient oriented x3 Cranial nerves: Yes Normal hearing present Cognition (Neuro): normal cognition Gait exam (Neuro): Normal gait present Extrem Other: 1+ pitting edema BLE Psych Appearance: grossly normal and well kempt Speech and movement: Normal speech and movement present and Clear speech present Affect: normal affect Attitude: cooperative Thought process: Normal thought process present Thought content: Normal thought content present Insight: Good insight present (Psych) Judgement: Good judgement present (Psych) Results Reviewed Results Reviewed: RESULT: CT Angio Chest CT Angio Chest INDICATION: Dr., Vomiting and diarrhea. Mild leukocytosis. Transient hypoxia and history of restrictive lung disease. Elevated proBNP. Rule out pulmonary embolism. TECHNIQUE: Helical CT angiogram of the chest performed after rapid IV contrast administration, 1 and 3 mm axial images displayed. Soft tissue and lung algorithm reconstructions are provided, as well as coronal 3D MIP reconstructions. Weight-based protocol using automatic tube modulation was used to optimize exposure [id number] cc of Isovue 300 was administered intravenously. CTDIvol Body: 11.80 mGy, DLP Body: 761 mGy*cm. COMPARISONS: Chest 02/23/2023, 02/22/2023 abdomen 07/12/2024 FINDINGS: FISHER MUSSEL VIEW FINDINGS, LINES AND TUBES: New elevated right diaphragm. PULMONARY ARTERIES: * Large left hilar pulmonary embolism nearly occluding left lower lobe artery and extending into nearly every branch. * Similar caliber large right embolus in the right lower lobe pulmonary artery extending into the branches with a smaller component in the upper lobe. HEART: HEART: * Normal heart size. No pericardial effusion. * There is interventricular septal bowing but no reflux of contrast into the IVC. TRACHEA AND BRONCHI: Patent without evidence of tracheal or endobronchial lesion. LUNGS AND PLEURA: * Right diaphragm elevated about 9 cm above the left. * Right middle and lower lobe atelectasis. * No pulmonary edema. * No effusion or pneumothorax. * Unchanged calcified right pleural plaques. AORTA: No aneurysm. No evidence of dissection on this study performed without cardiac gating. MEDIASTINUM AND LYMPH NODES: No mass or adenopathy. Normal esophagus. CHEST WALL AND SOFT TISSUES: Normal. DIAPHRAGM AND UPPER ABDOMEN: Fatty liver. Gallbladder sludge. BONES: * Healed right lateral 6th rib fracture. * Unchanged mild to moderate superior endplate compression fracture of T12. IMPRESSION: Acute pulmonary embolisim. Findings meet CT criteria for submassive PE. WSN: [id number] Ordering Physician: Nicolás Burton Reason For Exam PE Suspected, Intermediate Prob, Positive D-Dimer;Other: Echocardiogram - Complete 15:37:44 Summary The left ventricle is small. There is moderate discrete upper septal thickening due to a sigmoid shaped septum. Mild concentric left ventricular hypertrophy elsewhere. Left ventricular systolic function is vigorous. LVEF visually estimated at 70-75%. There is flattening of the interventricular septum during systole consistent with RV pressure overload. The right ventricle is severely dilated. Right ventricular systolic function is severely reduced. The entire RV free wall is severely hypokinetic; RV wall motion is normal at the apex (Daniel sign). The left atrium is normal in size. No hemodynamically significant (worse than mild) valve dysfunction. The central venous pressure estimation is normal, 3mmHg. The pulmonary artery systolic pressure estimation is moderately elevated, 60 mmHg. There is no significant pericardial effusion. Impressions Findings consistent with acutely elevated pulmonary artery pressure, RV dysfunction, and RV dilatation from hemodynamically significant acute pulmonary embolism. Recommendation Attending hospitalist Neva Mora DO notified of findings via [employer] secure messaging prior to finalization of the report. Comparison Comparison is made to the study of February 25, 2023. RV dilatation, dysfunction, and pulmonary hypertension were not present on the prior exam. Signature Signed By: Grabiel Castro MD Assessment & Plan Assessment & Plan (1) History of pulmonary embolism: Code(s): Z86.711 - Personal history of pulmonary embolism Category: Medical (2) COPD (chronic obstructive pulmonary disease): Code(s): J44.9 - Chronic obstructive pulmonary disease, unspecified Category: Medical (3) History of acute respiratory failure: Code(s): Z87.09 - Personal history of other diseases of the respiratory system Category: Medical (4) Personal history of tobacco use: Code(s): Z87.891 - Personal history of nicotine dependence Category: Social Hx (5) Diastolic CHF: Code(s): I50.30 - Unspecified diastolic (congestive) heart failure Category: Medical Plan Kathe presents after recent extensive unprovoked DVT/PE, now maintained on Eliquis and tolerating well. She has upcoming appt with vibrating screen operator for further workup and management of Eliquis. Given the extent of PE , patient may need lifelong therapy. Will repeat CTA to assess for resolution of PE. She is requesting this to be sent to [place]. She also has upcoming echo in October to reassess right heart strain found on echo during June admission. Upon arrival to room patient 88% on room air, carrying supplemental oxygen however not using and returned to 92% quickly with rest. Discussed importance of 2L supplemental oxygen with exertion and adverse effects of hypoxia which she understands. Advised to maintain O2 >92%. At this time, patient with suboptimal control with Breo, will switch to Trelegy. Patient reports consistent use of CPAP therapy, under the care of [facility] however they are likely unaware of h/o acute respiratory failure with hypoxia. Will send for overnight oximetry to assess for nocturnal hypoxemia with CPAP therapy. At this time, she would like to defer in lab titration study. All questions were answered and patient is in agreement of plan. Will follow up in 6-8 weeks or sooner if needed. Orders: Orders CT angio chest PE protocol 2 Weeks Z86.711 - Personal history of pulmonary embolism Overnight Pulse Oximetry Today G47.34 - Idiopathic sleep related nonobstructive alveolar hypoventilation, Z87.09 - Personal history of other diseases of the respiratory system Medications: New xpnufbrgxkw-cwdcqmbwp-ppukvfxe 100-62.5-25 mcg (Trelegy Ellipta) 1 inh inhalation DAILY 60 ea 6RF albuterol sulfate 90 mcg/actuation (Ventolin HFA) 2 puffs inhalation Q4-6H PRN 1 ea 3RF shortness of breath or wheezing Refilled albuterol sulfate 90 mcg/actuation (Ventolin HFA) 2 puffs inhalation Q4-6H PRN 1 ea 3RF shortness of breath or wheezing Coding Level of Care Code Est Pt Level 4 (27640) Complex EM visit Add On G2211 Diagnoses History of pulmonary embolism Z86.711 COPD (chronic obstructive pulmonary disease) J44.9 History of acute respiratory failure Z87.09 Personal history of tobacco use Z87.891 Diastolic CHF I50.30
[2024-10-04 08:58] VITALS: BP 140/78; PULSE 103; O2SAT 92; BMI 41.4
--- OUTSIDE RECORDS SUMMARY | 2024-10-04 09:21 | XMS_ITS | Continuity of Care Document ---
Author Organization [facility] [address] [place] [address] Phone [phone] Care Team Providers Care Duck Operator Name Role Phone Marvin Vallejo M.D. Care Team Information Uniforms Sales Representative [phone] Social History Type Date Description Comments Sex Female Sex Unknown Medical Devices Description No Information Available Encounters Description No Information Available Assessments Description No Information Available Plan of Treatment Future Appointment(s):* 12/27/2024 1:45 pm - Jerry Sam M.D. at Main Office Functional Status Description No Information Available Mental Status Description No Information Available Referrals Description No Information Available
== END 2024-10-04 09:44 | disposition home or self-care (01) ==
LOC: HO.HPSW 08:56
PROVIDERS: PCP Internal Medicine; Visit Provider Nurse Practitioner Family
DX: Z86.711 Personal history of pulmonary embolism (principal); J44.9 Chronic obstructive pulmonary disease, unspecified; Z87.09 Personal history of other diseases of the respiratory system; Z87.891 Personal history of nicotine dependence; I50.30 Unspecified diastolic (congestive) heart failure
CPT/HCPCS: 99214; G2211

== ENCOUNTER → 2024-10-04 08:56 | Outpatient (BNVA) | payer MEDICARE, SELFPAY | PROVIDERS: PCP Internal Medicine; Visit Provider Nurse Practitioner Family | DX: J44.9 Chronic obstructive pulmonary disease, unspecified (principal); Z86.711 Personal history of pulmonary embolism; Z87.09 Personal history of other diseases of the respiratory system | CPT/HCPCS: 99212 ==

== ENCOUNTER 2024-11-24 09:56 | Outpatient (AMB) | payer MEDICARE, SELFPAY ==
--- OUTSIDE RECORDS SUMMARY | 2024-11-24 10:07 | XMS_ITS | Clinical Summary ---
Author Organization [facility] Address [address] [facility] [address] [place] [address] Care Team Providers Care Handbag Framer Name Role Phone Unavailable Primary Care Provider Unavailabl e Allergies Active Allergy Reactions Criticality Noted Date Comments Codeine 06/16/2022 Other reaction(s): n/v/headache Hydrochlorothiazide-Triamt erene Rash Low 06/16/2022 Medications metoprolol succinate XL (Toprol-XL) 100 MG 24 hr tablet Metoprolol ER 100 Active METRELEPTIN SC Metreleptin Act manda Lactobacillus-I nulin ([facility]) capsule as directed Orally Active furosemide (Lasix) 20 MG tablet 1 tablet in the morning. Active Calcium Carbonate (CALCIUM 500 PO) Calcium Active VITAMIN D PO Vitamin D Active [place]-3 Fatty Acids (FISH OIL PO) Fish Oil Active amLODIPine (Norvasc) 5 MG tablet 3 Active Symbicort 160-4.5 MCG/ACT inhaler 2 Active omeprazole (PriLOSEC) [address] capsule 3 Active Active Problems Problem Noted Date Diagnosed Date Class 2 obesity 01/18/2023 Depression 01/18/2023 Mild pulmonary arterial systolic hypertension Sleep apnea 01/18/2023 Combined forms of age-related cataract of both e yes 06/16/2022 Social History Tobacco Use Types Packs/Day Years Used Date Smoking Tobacco: Former Cigarettes Q uit: 1984 Tobacco Cessation:Counseling Given: Not Answered Comments Unknown Sex and Gender Information Value Date Recorded Sex Assigned at Female 06/17/2022 3:09 PM EST Legal Sex Female 8:36 PM EDT Gender Identity Female 06/17/2022 3:09 PM EST Sexual Orientation Straight 06/17/2022 3: 09 PM EST Last Filed Vital Signs Vital Sign Reading Time Taken Comments Blood Pressure 120/70 01/18/2023 9:40 AM EDT Pulse - - Temperature 36.2 C (97.1 F) 01/18/2023 9:40 AM EDT Respiratory Rate - - Oxygen Saturation - - Inhaled Oxygen Concentration - - Weight - - Height - - Body Mass Index - - Plan of Treatment Upcoming Encounters Date Type Department Care Team (Prachi grullon Contact Info) Description 01/24/2025 10:00 AM EDT Office Visit [facility] [address] [place] [address] Gabi Rees, OD [address] [place] [address] Health Maintenance Due Date Last Done Comments Depression Screening 1945 Lipid Panel 1945 SDOH Screening 1945 Alcohol/Substance Use Screening 1958 Hepatitis C Screening 02/12/1964 DTaP/Tdap/Td Vaccines (1 - Tdap) 1965 Pneumococcal Vaccine: 50+ Years (1 of 1 - PCV) 02/12/1996 Zoster Vaccines (2 of 3) 03/24/2016 01/28/2016 COVID-19 Vaccine ( season) 2023 09/02/2023, 01/15/2023, 02/03/2022, Additional history exists Influenza Vaccine (#1) 2024 , 12/13/2022, 01/06/2022, Additional history exists Tobacco Screening 01/20/2025 01/21/2024 RSV Patients and Patients Aged 60 years or older Completed 12/13/2022 HIB Vaccines Aged Out No longer eligi ble based on patient's age to complete this topic HPV Vaccines Aged Out No longer eligi ble based on patient's age to complete this topic Hepatitis A Vaccines Aged Out No long er eligible based on patient's age to complete this topic Hepatitis B Vaccines Aged Out No long er eligible based on patient's age to complete this topic IPV Vaccines Aged Out No longer eligi ble based on patient's age to complete this topic Meningococcal B Vaccine Aged Out No l onger eligible based on patient's age to complete this topic Meningococcal Vaccine Aged Out No tony trupti eligible based on patient's age to complete this topic RSV under 20 months Aged Out No longe r eligible based on patient's age to complete this topic Rotavirus Vaccines Aged Out No longer eligible based on patient's age to complete this topic Insurance MEDICARE [facility]
--- OUTSIDE RECORDS SUMMARY | 2024-11-24 10:07 | XMS_ITS | Continuity of Care Document ---
Author Organization [facility] [address] [place] [address] Phone [phone] Care Team Providers Care Machine Silver Stripper Name Role Phone Marvin Vallejo M.D. Care Team Information Cabin Supervisor [phone] Social History Type Date Description Comments Sex [...]
[2024-11-24 10:14] VITALS: BP 118/68; PULSE 81; O2SAT 93; BMI 41.2
--- NOTE | 2024-11-24 10:14 | A.OFFVIS_ITS ---
Vital Signs 11/24/24 10:14 Height 5 ft 0.05 in Weight 211 lb 4 oz BMI 41.2 BP 118/68 Blood Pressure Location Rt brachial Position Sitting Pulse 81 Pulse Source Pulse Oximeter Pulse Oximetry (%) 93 Oxygen Delivery Method Room Air Intake Visit Reasons: COPD/Asthma Allergies [id number] Reductase Inhibitor Allergy (Unknown, Verified 11/24/24 10:17) Unknown codeine phosphate Allergy (Unknown, Uncoded 11/24/24 10:17) Gastrointestinal Upset dyazide Allergy (Unknown, Uncoded 11/24/24 10:17) Rash HPI HPI COPD/Asthma: Details: Kathe is a pleasant 79 year old female, former 30 pack year smoker, quit 40 years ago with underlying severe COPD, h/o acute respiratory failure with hypoxia on 2L supplemental oxygen with exertion, 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 She underwent hiatal hernia repair 2 years ago at [facility] as this what thought to be a contributing factor of dyspnea. Then sent to thoracic at [facility] for plication surgery for paralysis of right hemidiaphragm in January 2023 with complications related to hypoxia and discharged on 9L of continuous supplemental oxygen. As of March 2023, her oxygen requirements decreased and was instructed to use 2 L with exertion which she receives from [email or web address], however uses infrequently. She does not have supplemental oxygen on today. She reports compliance with CPAP therapy and states events are less than 1 per night. She is awaiting overnight oximetry to be performed to assess need for nocturnal supplemental oxygen. In June 2024 patient diagnosed with unprovoked extensive RLE DVT and extensive left lung pulmonary embolism, small PE of RLL/RUL, now on Eliquis. Echo revealed significant right heart strain, with repeat echo scheduled for next month, under the care of cardiology through [facility]. Recently started on Spironolactone and reports improved control of BP. Denies orthopnea or BLE edema. At the last visit, CT ordered to assess for resolution of PE and presents today to review. She continues to use Breo as she had once month left since the last visit, reporteing suboptimal control and will initiate Trelegy once Breo is completed. FOR[facility] Medical History (Updated 10/04/24 @ 12:19 by Jayla Osman NP) Anxiety Neck pain Back pain Benzodiazepine dependence Morbid obesity HTN (hypertension) Diastolic CHF Hemidiaphragm paralysis Hypoxic respiratory failure Major depression Asthma COPD (chronic obstructive pulmonary disease) Surgical History (Updated 06/03/23 @ 12:55 by ASHLEY Mccloud) History of thoracic surgery Social History Household Members: None Housing: House Alcohol intake: current Alcohol intake frequency: 0-2 drinks per day Alcohol type: hard liquor Comment: Whisky Patient Tobacco Use Status: Former Tobacco user Review of Systems Const Denies chills, Denies excessive sweating, Denies fever(s), Denies headache(s) and Denies night sweats Eyes Denies dry eyes, Denies irritation and Denies itchy eyes ENT Reports Normal hearing present, Denies headache(s), Denies nasal congestion, Denies nasal discharge, Denies post nasal drip and Denies sore throat Card Denies chest pain, Denies chest pain at rest, Denies chest pain with activity, Denies claudication, Reports dyspnea on exertion, Denies orthopnea and Denies paroxysmal nocturnal dyspnea Resp Denies chest congestion, Denies cough, Denies excessive phlegm production, Denies pain on inspiration, Denies pain with cough, Reports dyspnea on exertion, Denies stridor and Denies wheezing Musc Denies myalgias Neuro Reports Normal hearing present and Denies headache(s) Endo Denies excessive sweating Baldemar/Lymph Denies lymphadenopathy Aller/Immun Denies itchy eyes, Denies seasonal rhinorrhea and Denies wheezing Physical Exam Vital Signs: Last Vital Signs Pulse 81 11/24/24 10:14 BP 118/68 11/24/24 10:14 Pulse Ox 93 11/24/24 10:14 Oxygen Delivery Method Room Air 11/24/24 10:14 BMI result Body Mass Index 41.2 Const General: cooperative, healthy appearing, comfortable, no acute distress, well developed and alert Nutritional Appearance: obese Orientation/consciousness: patient oriented x3 Limitations: no limitations HEENT Head: Yes normal to inspection, Yes normocephalic and Yes atraumatic Ears: hearing grossly normal bilaterally and external ears normal Eyes General: appearance normal, both eyes and all related structures Eyelids: Yes eyelids normal Sclerae: sclerae normal EOM: EOMs intact bilaterally Neck Neck: Yes normal visual inspection and Yes no lymphadenopathy Lymphatic: no lymphadenopathy noted Chest Chest palpation & inspection: normal inspection of the chest Resp Other: Diminished bases Effort & Inspection: normal respiratory effort, able to speak in complete sentences, no audible wheezes, no cough, no stridor, not tachypneic, no tripod positioning and no use of accessory muscles Auscultation: clear to auscultation bilaterally Cardio Jugular venous distension: no JVD Rate: regular rate Rhythm: regular rhythm Skin Other: warm, dry General skin exam: no rashes or lesions noted Neuro General: patient oriented x3 Cranial nerves: Yes Normal hearing present Cognition (Neuro): normal cognition Gait exam (Neuro): Normal gait present Psych Appearance: grossly normal and well kempt Speech and movement: Normal speech and movement present and Clear speech present Affect: normal affect Attitude: cooperative Thought process: Normal thought process present Thought content: Normal thought content present Insight: Good insight present (Psych) Judgement: Good judgement present (Psych) Results Reviewed Results Reviewed: RESULT: CT Angio Chest CT Angio Chest INDICATION: Reason: Z86.711 PERSONAL HISTORY OF PULMONARY EMBOLISM TECHNIQUE: Spiral CTA of the chest was performed after rapid IV contrast administration without cardiac gating, triggered by an MISTY on the main pulmonary artery. Images are formatted in multiple planes using 2-D multiplanar and 3-D maximum intensity projection. 100 cc of Omnipaque 300 was administered i ntravenously. Weight-based protocol using automatic tube modulation was used to optimize exposure parameters. CTDIvol Body: 10.70 mGy, DLP Body: 454 mGy*cm. COMPARISONS: 07/13/2024 ANGIOGRAPHIC FINDINGS: No pulmonary embolism to the subsegmental level. Previous multifocal bilateral pulmonary emboli have resolved. Normal caliber pulmonary arteries. Mild atherosclerotic calcification of the aorta without acute abnormality on this study performed without cardiac gating. NON-ANGIOGRAPHIC FINDINGS: Aircraft Systems Repairer view findings, lines and tubes: None. Trachea and airways: Patent without evidence of tracheal or endobronchial lesion. Lungs and pleura: Mild emphysematous changes in the upper lobes. Chronic atelectasis right lung base with elevated right hemidiaphragm. Chronic calcified pleural plaques right lung base.. No effusion or pneumothorax. Mediastinum and trina: No mass or hematoma. No mediastinal or hilar lymphadenopathy. No esophageal abnormality. Normal thyroid. Heart: Heart is normal in size. No pericardial effusion. Mild coronary artery calcification. Chest wall soft tissues: No acute abnormality. Diaphragm: Chronic elevated right hemidiaphragm. Upper abdomen: Fatty infiltration of the liver. Small hiatal hernia. Bones: No acute abnormality. Chronic healed right sixth rib fracture. Chronic T12 compression fracture. IMPRESSION: No evidence of acute pulmonary embolism. Previous pulmonary embolism has resolved. Chronic elevated right hemidiaphragm and calcified pleural plaques at the right lung base. Mild emphysematous changes. Fatty infiltration of the liver. WSN: [id number] Ordering Physician: Jayla Osman Reason For Exam Z86.711 PERSONAL HISTORY OF PULMONARY EMBOLISM Signature Line Dictated By: Srinath Tirado MD Dictated Date/Time: 10/30/24 2:38 pm Reviewed By: Srinath Tirado MD Signed By: Srinath Tirado MD Signed Date/Time: 10/30/24 2:38 pm Transcribed By: HARRY Assessment & Plan Assessment & Plan (1) History of pulmonary embolism: Code(s): Z86.711 - Personal history of pulmonary embolism Category: Medical (2) COPD (chronic obstructive pulmonary disease): Code(s): J44.9 - Chronic obstructive pulmonary disease, unspecified Category: Medical (3) History of acute respiratory failure: Code(s): Z87.09 - Personal history of other diseases of the respiratory system Category: Medical (4) Personal history of tobacco use: Code(s): Z87.891 - Personal history of nicotine dependence Category: Social Hx (5) Diastolic CHF: Code(s): I50.30 - Unspecified diastolic (congestive) heart failure Category: Medical Plan Kathe was treated for extensive unprovoked DVT/PE in June, now maintained on Eliquis and tolerating well. She has upcoming appt with seo strategist for further workup and management of Eliquis. She was sent for repeat CTA to assess for resolution of PE and recent CTA revealed resolution of PE however reveals chronic atelectasis right lung base with elevated right hemidiaphragm despite plication surgery. Will obtain images to review. There was also note of chronic calcified pleural plaques right lung alaniz, denies prior asbestos exposure. Discussed importance of 2L supplemental oxygen with exertion and adverse effects of hypoxia which she understands. Advised to maintain O2 >92%. At this time, patient with suboptimal control with Breo, continues with dyspnea and has a prescription for Trelegy but waiting until she completes Breo to start. Patient reports consistent use of CPAP therapy, under the care of [facility] however they are likely unaware of h/o acute respiratory failure with hypoxia as she has not had a recent follow up. Order for overnight oximetry sent to assess for nocturnal hypoxemia with CPAP therapy which she is still awaiting. At this time, she would like to defer in lab titration study. All questions were answered and patient is in agreement of plan. Will follow up in 3 months or sooner if needed. Coding Level of Care Code Est Pt Level 4 (75642) Diagnoses History of pulmonary embolism Z86.711 COPD (chronic obstructive pulmonary disease) J44.9 History of acute respiratory failure Z87.09 Personal history of tobacco use Z87.891 Diastolic CHF I50.30
== END 2024-11-24 11:00 | disposition home or self-care (01) ==
LOC: HO.HPSW 09:57
PROVIDERS: PCP Internal Medicine; Visit Provider Nurse Practitioner Family
DX: Z86.711 Personal history of pulmonary embolism (principal); J44.9 Chronic obstructive pulmonary disease, unspecified; Z87.09 Personal history of other diseases of the respiratory system; Z87.891 Personal history of nicotine dependence; I50.30 Unspecified diastolic (congestive) heart failure
CPT/HCPCS: 99214

== ENCOUNTER → 2024-11-24 09:56 | Outpatient (BNVA) | payer MEDICARE, SELFPAY | PROVIDERS: PCP Internal Medicine; Visit Provider Nurse Practitioner Family | DX: I50.30 Unspecified diastolic (congestive) heart failure (principal); Z86.711 Personal history of pulmonary embolism; J44.9 Chronic obstructive pulmonary disease, unspecified; Z87.09 Personal history of other diseases of the respiratory system; Z87.891 Personal history of nicotine dependence; Z79.01 Long term (current) use of anticoagulants | CPT/HCPCS: 99212 ==